=== PATIENT | female | born 1980 | race Caucasian/White ===

== ENCOUNTER 2024-03-15 14:34 | Emergency (ER) | payer OTHER ==
[2024-03-15 15:01] VITALS: TEMP 98.2
[2024-03-15] MEDS ORDERED: TYLENOL 325 MG ONE (15:36)
[2024-03-15] MEDS: TYLENOL 325 MG PO STA (15:38)
[2024-03-15 16:03] LABS: INFLUENZA A NEGATIVE (NEGATIVE); INFLUENZA B NEGATIVE (NEGATIVE); RESPIRATORY SYNCTIAL VIRUS NEGATIVE (NEGATIVE); SARS-CoV-2 Xpert Express NEGATIVE (NEGATIVE)
[2024-03-15 16:07] VITALS: BP 112/77; PULSE 73; RESP 18; O2SAT 98
--- NOTE | 2024-03-15 16:14 | ERPHSYRPT ---
- History of Present Illness Time Seen by Provider: 03/15/24 14:39 Source: patient Exam Limitations: no limitations Patient Subjective Stated Complaint: Pt c/o of all over body aches, headache, and alma delia earaches Triage Nursing Assessment: Pt was brought to the ER by her mother in law, vitals wnl, rates pain as 8/10, pulses normal, skin n/w/d, alma delia earaches, headache, all over body aches, vomited one time yesterday, doesn't appear to be in any dis tress Physician History: 43 years old female presented in the ER with flulike symptoms. Patient reports generalized body aches, sinus congestion/pain and headache/bilateral earache since yesterday. No fever or chills reported. Patient denies any known sick contact. Does report having nausea and an episode of nonprojectile, nonbilious vomiting without hematemesis. No chest pain palpitations shortness of breath or cough reported. No sore throat. Allergies/Adverse Reactions: No Known Drug Allergies Allergy (Verified 03/15/24 15:01) Hx Influenza Vaccination/Date Given: No Hx Pneumococcal Vaccination/Date Given: No Travel Risk - International Travel Have you traveled outside of the country in past 3 weeks: No - Emerging Infectious Disease Are you exhibiting symptoms associated with any current EIDs: Yes Symptoms: Headaches/Body Aches/ - Review of Systems Constitutional: Fatigue, Malaise Eyes: No Symptoms Ears, Nose, & Throat: Ear Pain Respiratory: No Symptoms Cardiac: No Symptoms Abdominal/Gastrointestinal: No Symptoms Genitourinary Symptoms: No Symptoms Musculoskeletal: No Symptoms Skin: No Symptoms Neurological: No Symptoms Endocrine: No Symptoms Hematologic/Lymphatic: No Symptoms - Past Medical History Pertinent Past Medical History: Yes Psycho-Social History: Anxiety, Depression Other Medical History: born with one kidney, vascular reflux - Past Surgical History Past Surgical History: Yes Gastrointestinal: Cholecystectomy Female Surgical History: Section, Tubal Ligation - Female History Hx Now: No (tubal) - Social History Smoking Status: Never smoker Exposure to second hand smoke: Yes Drug Use: none - Social Determinants of Health Will the patient participate in the screening: Yes Do you worry about a steady place to live?: No Do you have any problems with any of the following?: No known problems In the past 12 months,have you had to go without utilities?: No Transportation Issues: No Has anyone in your support network made you feel unsafe?: No Have you or anyone in your house had to go without enough: No - Nursing Vital Signs Nursing Vital Signs: Initial Vital Signs Temperature 98.2 F 03/15/24 14:52 Pulse Rate 74 03/15/24 14:52 Blood Pressure 114/71 03/15/24 14:52 O2 Sat by Pulse Oximetry 96 03/15/24 14:52 Pain Scale Pain Intensity 8 - Physical Exam General Appearance: no apparent distress, alert Eye Exam: PERRL/EOMI Ears, Nose, Throat Exam: moist mucous membranes, other (Mild frontal/maxillary tenderness.) Neck Exam: normal inspection, non-tender, supple, full range of motion Respiratory Exam: normal breath sounds, lungs clear Cardiovascular Exam: regular rate/rhythm, normal heart sounds Gastrointestinal/Abdomen Exam: soft, normal bowel sounds, No tenderness Back Exam: normal inspection, normal range of motion Extremity Exam: normal inspection, normal range of motion Neurologic Exam: alert, oriented x 3, cooperative, curb attendant II-XII nml as tested Skin Exam: normal color SpO2 Interpretation: normal SpO2: 98 O2 Delivery: Room Air Ordered Tests: Medication Summary Discontinued Medications Generic Name Dose Route Start Last Admin Trade Name Freq PRN Reason Stop Dose Admin Acetaminophen 975 mg 03/15/24 15:16 03/15/24 15:38 Acetaminophen 325 Mg Tablet PO 03/15/24 15:17 975 mg STAT STA Administration Acetaminophen Confirm 03/15/24 15:36 Acetaminophen 325 Mg Tablet Administered 03/15/24 15:37 Dose 975 mg .ROUTE .K-MED ONE Lab/Rad Data: Laboratory Results 03/15/24 Range/Units Unknown Influenza Type A Ag NEGATIVE (NEGATIVE) Influenza Type B Ag NEGATIVE (NEGATIVE) RSV (PCR) NEGATIVE (NEGATIVE) SARS-CoV-2 (PCR) NEGATIVE (NEGATIVE) - Progress Progress: unchanged Air Movement: good Progress Note: 03/15/24 16:17 43 years old is evaluated in the ER for body aches fatigue tiredness, headache, earache. Has some sinus tenderness. Has negative flu COVID RSV and strep. Lungs clear to auscultation and patient has no cough. Abdominal exam is soft nontender with normoactive bowel sounds. I believe patient's symptoms are viral etiology, recommended supportive care and will do Flonase for possible some element of sinusitis along with a dose of Decadron given here to help with decrease edema in the eustachian tubes and outpatient follow-up.. Discussed signs symptoms of worsening needing return to ER which she seems understanding. Blood Culture(s) Obtained: No Antibiotics given: No Counseled pt/family regarding: lab results, diagnosis, need for follow-up Medical Desision Making - Diagnostic Testing Diagnostic test were ordered, analyzed, and reviewed by me: Yes - Risk of complications The pt has a mod risk of morbidity or mortality based on: Need for prescription drug management - Departure Departure Disposition: Home Clinical Impression: Viral syndrome Condition: Stable Critical Care Time: No Referrals: DOCTOR,NO FAMILY [Primary Care Provider] - Follow up with PCP 1 day Instructions: Cough, runny nose, and the common cold Additional Instructions: Take Tylenol/ibuprofen as needed. Daily Flonase. Follow-up with primary care for reevaluation. Return to ER for any worsening. Prescriptions: Fluticasone Propionate [Flonase NASAL] 16 gm NS DAILY 10 Days #1 inh
[2024-03-15] MEDS ORDERED: DECADRON 10MG INJ. ONE (16:20)
[2024-03-15] MEDS: DECADRON 10MG INJ. IM ONE (16:21)
== END 2024-03-15 16:33 | disposition home or self-care (01) ==
LOC: ED 14:34
DX: B34.9 Viral infection, unspecified (principal); R09.81 Nasal congestion; R51.9 Headache, unspecified; H92.03 Otalgia, bilateral; R11.10 Vomiting, unspecified
CPT/HCPCS: 0241U; 96372; 99283; J1100; A9270-GY

== ENCOUNTER 2024-08-29 14:46 | Emergency (ER) | payer OTHER ==
[2024-08-29 14:58] VITALS: TEMP 98.3
[2024-08-29] MEDS ORDERED: BENADRYL 50 MG/ML ONE (15:20)
[2024-08-29] MEDS ORDERED: Reglan 10 MG/2 ML ONE (15:20)
[2024-08-29] MEDS ORDERED: TYLENOL 325 MG ONE (15:20)
[2024-08-29] MEDS: TYLENOL 325 MG PO ONE (15:21)
[2024-08-29] MEDS: BENADRYL 50 MG/ML IM ONE (15:21)
[2024-08-29] MEDS: Reglan 10 MG/2 ML IM ONE (15:21)
[2024-08-29] MEDS: Reglan 10 MG/2 ML IV ONE (15:22)
[2024-08-29] MEDS: BENADRYL 50 MG/ML IV ONE (15:22)
--- NOTE | 2024-08-29 15:48 | ERPHSYRPT ---
- History of Present Illness Time Seen by Provider: 08/29/24 14:54 Source: patient Exam Limitations: no limitations Patient Subjective Stated Complaint: Pt states "I have been feeling like crap for a week and a half and I feel terrible, my head hurts, I am coughing, my eyes are goupy." Triage Nursing Assessment: Pt presented alert and oriented X 3, skin pwd. Pt ambulates with an upright steady gait, able to speak in clear full sentences. PT resting comfortably on the bed. Physician History: 44 years old female fairly healthy presented in the ER with flulike symptoms for last 10 days with progressive worsening. Patient reports having generalized headache, earache, sinus/nasal congestion, minimal productive cough and aches and pains all over. She has been using [id number] medications with no significant relief. Also reports subjective feeling of fever and chills. Feels weak and fatigued. Patient reports she is drinking a lot of fluids to keep up with hydration. Denies any known sick contact. Has history of recurrent headaches but no official diagnosis of migraines. Headache is all over and similar to her previous headaches, moderate intensity sharp, increased light sensitivity with no numbness tingling or focal weakness. No difficulty movements of neck. Allergies/Adverse Reactions: No Known Drug Allergies Allergy (Verified 03/15/24 15:01) Hx Tetanus, Diphtheria Vaccination/Date Given: Yes Hx Influenza Vaccination/Date Given: Yes Hx Pneumococcal Vaccination/Date Given: No Immunizations Up to Date: No Travel Risk - International Travel Have you traveled outside of the country in past 3 weeks: No - Emerging Infectious Disease Are you exhibiting symptoms associated with any current EIDs: Yes Symptoms: Cough: New Onset, Fever, Headaches/Body Aches/, Joint Pain, Loss of taste or smell - Review of Systems Constitutional: Fever, Chills, Fatigue, Weakness Eyes: No Symptoms Ears, Nose, & Throat: Nose Congestion, Sinus Drainage Respiratory: Cough Cardiac: No Symptoms Abdominal/Gastrointestinal: No Symptoms Genitourinary Symptoms: No Symptoms Musculoskeletal: Myalgias Skin: No Symptoms Neurological: Headache Psychological: No Symptoms Endocrine: No Symptoms Hematologic/Lymphatic: No Symptoms Immunological/Allergic: No Symptoms - Past Medical History Pertinent Past Medical History: Yes Psycho-Social History: Anxiety, Depression Other Medical History: born with one kidney, vascular reflux - Past Surgical History Past Surgical History: Yes Gastrointestinal: Cholecystectomy Female Surgical History: Section, Tubal Ligation - Female History Hx Last Menstrual Period: 08/12/2024 Hx Now: (unkn) - Social History Smoking Status: Never smoker Exposure to second hand smoke: Yes Drug Use: none - Social Determinants of Health Will the patient participate in the screening: Yes Do you worry about a steady place to live?: No Do you have any problems with any of the following?: No known problems In the past 12 months,have you had to go without utilities?: No Transportation Issues: No Has anyone in your support network made you feel unsafe?: No Have you or anyone in your house had to go w/o enough food: No - Nursing Vital Signs Nursing Vital Signs: Initial Vital Signs Temperature 98.3 F 08/29/24 14:50 Pulse Rate 97 H 08/29/24 14:50 Respiratory Rate 18 08/29/24 14:50 Blood Pressure 150/84 08/29/24 14:50 O2 Sat by Pulse Oximetry 99 08/29/24 14:50 Pain Scale Pain Intensity 0 - Physical Exam General Appearance: no apparent distress, alert Eye Exam: PERRL/EOMI Ears, Nose, Throat Exam: moist mucous membranes, pharyngeal erythema Neck Exam: normal inspection, non-tender, supple, full range of motion, No meningismus Respiratory Exam: normal breath sounds, lungs clear Cardiovascular Exam: regular rate/rhythm, normal heart sounds Gastrointestinal/Abdomen Exam: soft, normal bowel sounds, No tenderness Back Exam: normal inspection, normal range of motion Extremity Exam: normal inspection, normal range of motion Neurologic Exam: alert, oriented x 3, cooperative, inspector clip on sunglasses II-XII nml as tested, normal mood/affect, nml cerebellar function, nml station & gait, sensation nml, No motor deficits Skin Exam: normal color SpO2 Interpretation: normal SpO2: 99 O2 Delivery: Room Air Ordered Tests: Active Orders 24 hr Category Date Time Status CHEST 1 VIEW (PORTABLE) Stat Exams 08/29/24 15:12 Completed CBC W DIFF Stat Lab 08/29/24 15:57 Completed CMP Stat Lab 08/29/24 15:57 Completed CULTURE,URINE Routine Lab 08/29/24 16:00 Received HCG QUALITATIVE, SERUM Stat Lab 08/29/24 15:57 Completed Lactic Acid Stat Lab 08/29/24 15:09 Completed MAGNESIUM Stat Lab 08/29/24 15:57 Completed UA W/RFX UR CULTURE Stat Lab 08/29/24 15:17 Completed Medication Summary Discontinued Medications Generic Name Dose Route Start Last Admin Trade Name Mango PRN Reason Stop Dose Admin Acetaminophen 975 mg 08/29/24 15:12 08/29/24 15:21 Acetaminophen 325 Mg Tablet PO 08/29/24 15:13 975 mg STAT ONE Administration Acetaminophen Confirm 08/29/24 15:20 Acetaminophen 325 Mg Tablet Administered 08/29/24 15:21 Dose 975 mg .ROUTE .STK-MED ONE Amoxicillin/Clavulanate Potassium 875 mg 08/29/24 17:47 08/29/24 17:51 Amox Tr/Potassium Clavulanate 875 Mg Tablet PO 08/29/24 17:48 875 mg STAT ONE Administration Amoxicillin/Clavulanate Potassium Confirm 08/29/24 17:50 Amox Tr/Potassium Clavulanate 875 Mg Tablet Administered 08/29/24 17:51 Dose 875 mg .ROUTE .STK-MED ONE Diphenhydramine HCl 25 mg 08/29/24 15:12 08/29/24 15:22 Diphenhydramine Hcl 50 Mg/Ml Vial IV 08/29/24 15:13 Not Given STAT ONE Diphenhydramine HCl 25 mg 08/29/24 15:19 08/29/24 15:21 Diphenhydramine Hcl 50 Mg/Ml Vial IM 08/29/24 15:20 25 mg STAT ONE Administration Diphenhydramine HCl Confirm 08/29/24 15:20 Diphenhydramine Hcl 50 Mg/Ml Vial Administered 08/29/24 15:21 Dose 50 mg .ROUTE .STK-MED ONE Metoclopramide HCl 10 mg 08/29/24 15:12 08/29/24 15:22 Metoclopramide Hcl 10 Mg/2 Ml Vial IV 08/29/24 15:13 Not Given STAT ONE Metoclopramide HCl 10 mg 08/29/24 15:19 08/29/24 15:21 Metoclopramide Hcl 10 Mg/2 Ml Vial IM 08/29/24 15:20 10 mg STAT ONE Administration Metoclopramide HCl Confirm 08/29/24 15:20 Metoclopramide Hcl 10 Mg/2 Ml Vial Administered 08/29/24 15:21 Dose 10 mg .ROUTE .STK-MED ONE Lab/Rad Data: Laboratory Result Diagrams 08/29/24 15:57 08/29/24 15:57 Laboratory Results 08/29/24 08/29/24 08/29/24 Range/Units 15:57 15:57 15:57 WBC (3.98-10.04) x10^3/uL RBC (3.93-5.22) x10^6/uL Hgb (11.2-15.7) g/dL Hct (34.1-44.9) % MCV (79.4-94.8) fL MCH (25.6-32.2) pg MCHC (32.2-35.5) g/dL RDW (11.7-14.4) % Plt Count (182-369) x10^3/uL MPV (9.4-12.3) fL Gran % (34.0-71.1) % Immature Gran % (Auto) (0.001-0.429) % Nucleat RBC Rel Count (0.00-0.2) % Eos # (Auto) (0.04-0.36) x10^3/uL Immature Gran # (Auto) (0.001-0.031) x10^3u/L Absolute Lymphs (auto) (1.18-3.74) x10^3/uL Absolute Monos (auto) (0.24-0.86) x10^3/uL Absolute Nucleated RBC (0.00-0.012) x10^3u/L Lymphocytes % (19.3-51.7) % Monocytes % (4.7-12.5) % Eosinophils % (0.7-5.8) % Basophils % (0.1-1.2) % Absolute Granulocytes (1.56-6.13) x10^3/uL Basophils # (0.01-0.08) x10^3/uL Sodium (135-145) mmol/L Potassium (3.5-5.1) mmol/L Chloride (98-107) mmol/L Carbon Dioxide (22-30) mmol/L Anion Gap (5-15) MEQ/L BUN (7-17) mg/dL Creatinine (0.52-1.04) mg/dL Estimated GFR ML/MIN Glucose (74-106) mg/dL Lactic Acid (0.4-2.0) Calcium (8.4-10.2) mg/dL Magnesium (1.6-2.3) mg/dL Total Bilirubin (0.2-1.3) mg/dL AST (14-36) U/L ALT (0-35) U/L Alkaline Phosphatase (38-126) U/L Serum Total Protein (6.3-8.2) g/dL Albumin (3.5-5.0) g/dL Serum HCG, Qual NEGATIVE (NEGATIVE) Urine Color (Yellow) Urine Appearance (Clear) Urine pH (4.6-8.0) Ur Specific [place] (1.005-1.030) Urine Protein (Negative) Urine Glucose (UA) (Negative) mg/dL Urine Ketones (Negative) Urine Blood (Negative) Urine Nitrite (Negative) Urine Bilirubin (Negative) Urine Urobilinogen (0.2) mg/dL Ur Leukocyte Esterase (Negative) U Hyaline Cast (Auto) (0-2) /LPF Urine Microscopic RBC (0-5) /HPF Urine Microscopic WBC (0-5) /HPF Ur Epithelial Cells (None Seen) /HPF Urine Bacteria (None Seen) /HPF Urine Culture Reflexed (NO) Influenza Type A Ag NEGATIVE (NEGATIVE) Influenza Type B Ag NEGATIVE (NEGATIVE) RSV (PCR) NEGATIVE (NEGATIVE) SARS-CoV-2 (PCR) NEGATIVE (NEGATIVE) Group A Strep Antibody DETECTED A (NEGATIVE) 08/29/24 08/29/24 08/29/24 Range/Units 15:57 15:57 15:17 WBC 8.6 (3.98-10.04) x10^3/uL RBC 3.77 L (3.93-5.22) x10^6/uL Hgb 11.3 (11.2-15.7) g/dL Hct 33.9 L (34.1-44.9) % MCV 89.9 (79.4-94.8) fL MCH 30.0 (25.6-32.2) pg MCHC 33.3 (32.2-35.5) g/dL RDW 12.2 (11.7-14.4) % Plt Count 148 L (182-369) x10^3/uL MPV 9.9 (9.4-12.3) fL Gran % 58.3 (34.0-71.1) % Immature Gran % (Auto) 0.2 (0.001-0.429) % Nucleat RBC Rel Count 0.0 (0.00-0.2) % Eos # (Auto) 0.31 (0.04-0.36) x10^3/uL Immature Gran # (Auto) 0.02 (0.001-0.031) x10^3u/L Absolute Lymphs (auto) 2.55 (1.18-3.74) x10^3/uL Absolute Monos (auto) 0.68 (0.24-0.86) x10^3/uL Absolute Nucleated RBC 0.00 (0.00-0.012) x10^3u/L Lymphocytes % 29.7 (19.3-51.7) % Monocytes % 7.9 (4.7-12.5) % Eosinophils % 3.6 (0.7-5.8) % Basophils % 0.3 (0.1-1.2) % Absolute Granulocytes 4.99 (1.56-6.13) x10^3/uL Basophils # 0.03 (0.01-0.08) x10^3/uL Sodium 138 (135-145) mmol/L Potassium 4.2 (3.5-5.1) mmol/L Chloride 104 (98-107) mmol/L Carbon Dioxide 21 L (22-30) mmol/L Anion Gap 17.6 H (5-15) MEQ/L BUN 12 (7-17) mg/dL Creatinine 0.61 (0.52-1.04) mg/dL Estimated GFR 113.7 ML/MIN Glucose 107 H (74-106) mg/dL Lactic Acid (0.4-2.0) Calcium 9.0 (8.4-10.2) mg/dL Magnesium 1.9 (1.6-2.3) mg/dL Total Bilirubin 0.50 (0.2-1.3) mg/dL AST 33 (14-36) U/L ALT 21 (0-35) U/L Alkaline Phosphatase 63 (38-126) U/L Serum Total Protein 7.6 (6.3-8.2) g/dL Albumin 4.3 (3.5-5.0) g/dL Serum HCG, Qual (NEGATIVE) Urine Color Yellow (Yellow) Urine Appearance Cloudy A (Clear) Urine pH 5.5 (4.6-8.0) Ur Specific [place] 1.025 (1.005-1.030) Urine Protein Negative (Negative) Urine Glucose (UA) Negative (Negative) mg/dL Urine Ketones Trace A (Negative) Urine Blood Negative (Negative) Urine Nitrite Negative (Negative) Urine Bilirubin Negative (Negative) Urine Urobilinogen 0.2 (0.2) mg/dL Ur Leukocyte Esterase Negative (Negative) U Hyaline Cast (Auto) 3-5 A (0-2) /LPF Urine Microscopic RBC 3-5 (0-5) /HPF Urine Microscopic WBC 0-2 (0-5) /HPF Ur Epithelial Cells Moderate A (None Seen) /HPF Urine Bacteria Moderate A (None Seen) /HPF Urine Culture Reflexed NO (NO) Influenza Type A Ag (NEGATIVE) Influenza Type B Ag (NEGATIVE) RSV (PCR) (NEGATIVE) SARS-CoV-2 (PCR) (NEGATIVE) Group A Strep Antibody (NEGATIVE) 08/29/24 Range/Units 15:09 WBC (3.98-10.04) x10^3/uL RBC (3.93-5.22) x10^6/uL Hgb (11.2-15.7) g/dL Hct (34.1-44.9) % MCV (79.4-94.8) fL MCH (25.6-32.2) pg MCHC (32.2-35.5) g/dL RDW (11.7-14.4) % Plt Count (182-369) x10^3/uL MPV (9.4-12.3) fL Gran % (34.0-71.1) % Immature Gran % (Auto) (0.001-0.429) % Nucleat RBC Rel Count (0.00-0.2) % Eos # (Auto) (0.04-0.36) x10^3/uL Immature Gran # (Auto) (0.001-0.031) x10^3u/L Absolute Lymphs (auto) (1.18-3.74) x10^3/uL Absolute Monos (auto) (0.24-0.86) x10^3/uL Absolute Nucleated RBC (0.00-0.012) x10^3u/L Lymphocytes % (19.3-51.7) % Monocytes % (4.7-12.5) % Eosinophils % (0.7-5.8) % Basophils % (0.1-1.2) % Absolute Granulocytes (1.56-6.13) x10^3/uL Basophils # (0.01-0.08) x10^3/uL Sodium (135-145) mmol/L Potassium (3.5-5.1) mmol/L Chloride (98-107) mmol/L Carbon Dioxide (22-30) mmol/L Anion Gap (5-15) MEQ/L BUN (7-17) mg/dL Creatinine (0.52-1.04) mg/dL Estimated GFR ML/MIN Glucose (74-106) mg/dL Lactic Acid 0.6 (0.4-2.0) Calcium (8.4-10.2) mg/dL Magnesium (1.6-2.3) mg/dL Total Bilirubin (0.2-1.3) mg/dL AST (14-36) U/L ALT (0-35) U/L Alkaline Phosphatase (38-126) U/L Serum Total Protein (6.3-8.2) g/dL Albumin (3.5-5.0) g/dL Serum HCG, Qual (NEGATIVE) Urine Color (Yellow) Urine Appearance (Clear) Urine pH (4.6-8.0) Ur Specific [place] (1.005-1.030) Urine Protein (Negative) Urine Glucose (UA) (Negative) mg/dL Urine Ketones (Negative) Urine Blood (Negative) Urine Nitrite (Negative) Urine Bilirubin (Negative) Urine Urobilinogen (0.2) mg/dL Ur Leukocyte Esterase (Negative) U Hyaline Cast (Auto) (0-2) /LPF Urine Microscopic RBC (0-5) /HPF Urine Microscopic WBC (0-5) /HPF Ur Epithelial Cells (None Seen) /HPF Urine Bacteria (None Seen) /HPF Urine Culture Reflexed (NO) Influenza Type A Ag (NEGATIVE) Influenza Type B Ag (NEGATIVE) RSV (PCR) (NEGATIVE) SARS-CoV-2 (PCR) (NEGATIVE) Group A Strep Antibody (NEGATIVE) - Progress Progress: improved, re-examined Air Movement: good Progress Note: 08/29/24 17:47 44 years old is evaluated in the ER for flulike symptoms for the last few days with progressive worsening. Patient was having headache, body aches, sore throat, sinus/nasal congestion, cough and subjective feeling of fever and chills. She is given symptomatic treatment for headache. Patient does have a history of recurrent headaches, given Reglan/Benadryl and Tylenol, on reevaluation her headache is resolved. No signs of meningismus, nonfocal neuroexam throughout stay in the ER. Workup showed normal white count, chemistries fairly unremarkable, no UTI. Has negative flu COVID and RSV but has a positive strep. She is given a dose of Augmentin here and will continue to go home. I believe patient symptoms are secondary to URI with pharyngitis, recommended symptomatic/supportive care and outpatient follow-up. Do not think she needs any other workup and is stable for discharge. Complexity of problems addressed: Moderate acute Complexity of data reviewed/analyzed: Moderate Risk of complication: Low risk Blood Culture(s) Obtained: No Antibiotics given: Yes, No Counseled pt/family regarding: lab results, diagnosis, rad results Medical Desision Making - Diagnostic Testing Diagnostic test were ordered, analyzed, and reviewed by me: Yes Radiological Interpretation: Interpreted by me, Reviewed by me - Risk of complications The pt has a mod risk of morbidity or mortality based on: Need for prescription drug management - Departure Departure Disposition: Home Clinical Impression: Strep pharyngitis, URI with cough and congestion, Headache Condition: Stable Critical Care Time: No Referrals: DOCTOR,NO FAMILY [Primary Care Provider, UNKNOWN] - Follow up with PCP 1 day Instructions: Sore throat in adults - ED discharge instructions Additional Instructions: Take Tylenol as needed. Drink plenty of fluids. Follow-up with your primary care for reevaluation. Return to ER for any worsening. Prescriptions: Amox Tr/Potass Clav. 875 mg [Augmentin 875-125 Tablet] 875 mg PO BID 10 Days #20 tablet
[2024-08-29 16:05] LABS: Absolute Neutrophil Ct (ANC) 4.99 x10^3/uL (1.56-6.13); BASOPHIL % 0.3 % (0.1-1.2); Basophil (Absolute #) 0.03 x10^3/uL (0.01-0.08); Eosinophil % 3.6 % (0.7-5.8); Eosinophil (Absolute #) 0.31 x10^3/uL (0.04-0.36); Hematocrit 33.9 % (34.1-44.9); Hemoglobin 11.3 g/dL (11.2-15.7); IMMATURE GRAN # 0.02 x10^3u/L (0.001-0.031); IMMATURE GRAN % 0.2 % (0.001-0.429); Lymphocyte (Absolute #) 2.55 x10^3/uL (1.18-3.74); Lymphocytes % 29.7 % (19.3-51.7); Mean Cell Volume 89.9 fL (79.4-94.8); Mean Corpuscular Hgb Concent. 33.3 g/dL (32.2-35.5); Mean Platelet Volume 9.9 fL (9.4-12.3); Monocyte (Absolute #) 0.68 x10^3/uL (0.24-0.86); Monocytes % 7.9 % (4.7-12.5); Neutrophil % 58.3 % (34.0-71.1); Platelet Count 148 x10^3/uL (182-369); Red Blood Count 3.77 x10^6/uL (3.93-5.22); Red Cell Distribution Width 12.2 % (11.7-14.4); White Blood Count 8.6 x10^3/uL (3.98-10.04)
[2024-08-29 16:11] LABS: Appearance Cloudy (Clear); Bacteria Moderate /HPF (None Seen); Bilirubin Negative (Negative); Blood Negative (Negative); Epithelial Cells Moderate /HPF (None Seen); Glucose, Urine Negative (Negative); Ketones Trace (Negative); Leukocyte Esterase Negative (Negative); Nitrite Negative (Negative); Ph 5.5 (4.6-8.0); Protein,Urine Dip Negative (Negative); Specific Gravity 1.025 (1.005-1.030); Urobilinogen 0.2 mg/dL (0.2); WBC 0-2 /HPF (0-5)
[2024-08-29 16:19] LABS: HCG SERUM TEST NEGATIVE (NEGATIVE)
[2024-08-29 16:41] LABS: INFLUENZA A NEGATIVE (NEGATIVE); INFLUENZA B NEGATIVE (NEGATIVE); RESPIRATORY SYNCTIAL VIRUS NEGATIVE (NEGATIVE); SARS-CoV-2 Xpert Express NEGATIVE (NEGATIVE)
[2024-08-29 16:50] LABS: ALBUMIN 4.3 g/dL (3.5-5.0); ANION GAP 17.6 MEQ/L (5-15); BILIRUBIN,TOTAL 0.5 mg/dL (0.2-1.3); Creatinine 1 0.61 mg/dL (0.52-1.04); EST GLOMERULAR FILTRATION RATE 113.7 ML/MIN; MAGNESIUM 1.9 mg/dL (1.6-2.3); Potassium 4.2 mmol/L (3.5-5.1); Total Protein 7.6 g/dL (6.3-8.2)
--- NOTE | 2024-08-29 17:10 | XRAY ---
Indication: Cough. Comparison: None Portable chest demonstrates normal heart, lungs, and bony thorax.
[2024-08-29 17:49] VITALS: O2SAT 99
[2024-08-29] MEDS ORDERED: Augmentin 875-125 Tablet ONE (17:50)
[2024-08-29] MEDS: Augmentin 875-125 Tablet PO ONE (17:51)
[2024-08-29 18:02] VITALS: BP 124/69; PULSE 70; RESP 16
== END 2024-08-29 18:03 | disposition home or self-care (01) ==
LOC: ED 14:46
DX: J02.0 Streptococcal pharyngitis (principal); J06.9 Acute upper respiratory infection, unspecified; R05.1 Acute cough; R09.81 Nasal congestion; R51.9 Headache, unspecified; M79.10 Myalgia, unspecified site; R53.1 Weakness; Z79.899 Other long term (current) drug therapy
CPT/HCPCS: 0241U; 36415; 71045; 80053; 81001; 83605; 83735; 84703; 85025; 87086; 87651; 96372; 99285; 99284; J1200; A9270-GY